=== PATIENT | female | born 2000 | race Caucasian/White ===

== ENCOUNTER 2019-05-16 15:57 | Emergency (ER) | payer MEDICAID ==
[~2019-05-16] VITALS: Ht 152.4 cm; Wt 63.0 kg
[2019-05-16 16:08] VITALS: Ht 152.4 cm; Wt 63.0 kg
[2019-05-16 17:55] VITALS: BP 115/86
== END 2019-05-16 17:55 | disposition home or self-care (01) ==
LOC: ED 15:57
DX: F41.9 Anxiety disorder, unspecified (principal); E11.9 Type 2 diabetes mellitus without complications
CPT/HCPCS: Q0162